=== PATIENT | female | born 2005 | race Caucasian/White ===

== ENCOUNTER 2025-08-09 09:00 | Outpatient (CLI) | payer BC ==
[2025-08-09] MEDS ORDERED: Iopamidol 370 76% 100 ML VIAL ONE (10:03)
== END 2025-08-09 09:01 | disposition home or self-care (01) ==
LOC: CSHCT 09:00
PROVIDERS: ATTEND Psychiatry & Neurology Neurology
DX: R55 Syncope and collapse (principal)
CPT/HCPCS: 70450; 70496; 70498; Q9967